=== PATIENT | male | born 1960 | race African-American/Black ===

== ENCOUNTER 2016-11-22 00:17 | Emergency (ER) | payer MEDICARE, MEDICAID ==
[2016-11-22 00:28] VITALS: BP 145/91
== END 2016-11-22 04:00 | disposition left against medical advice (07) ==
LOC: ER 00:17
DX: Z53.9 Procedure and treatment not carried out, unspecified reason (principal); R05 Cough

== ENCOUNTER 2017-06-10 11:59 | Emergency (ER) | payer MEDICARE, MEDICAID ==
[2017-06-10 12:05] VITALS: BP 149/87
--- NOTE | 2017-06-10 13:06 | ER Document Report ---
HPI - HPI Patient complains to provider of: swelling to left upper eyelid few days Onset: Other - few days Quality of pain: Pressure Pain Level: 4 Context: 57 yo non contact lense wearing (glasses he didn't bring with him) had itchy upper left eyelid margins/eyelashes on monday, then developed swelling and bump in area, minimal drainage. No visual disturbance. Associated Symptoms: None Exacerbated by: Denies Relieved by: Denies - ROS ROS below otherwise negative: Yes Systems Reviewed and Negative: Yes All other systems reviewed and negative - REPRODUCTIVE Reproductive: DENIES: : - DERM Skin Color: Normal Past Medical History - General Information source: Patient - Social History Smoking Status: Never Smoker Frequency of alcohol use: None Drug Abuse: None Lives with: Family Family History: Reviewed & Not Pertinent, Arthritis, CVA, Hyperlipidemia, Hypertension, Malignancy - Past Medical History Cardiac Medical History: Reports: Hx Atrial Fibrillation, Hx Hypercholesterolemia, Hx Hypertension Pulmonary Medical History: Reports: Hx Pneumonia Neurological Medical History: Reports: Hx Seizures Musculoskeltal Medical History: Reports Hx Arthritis, Reports Hx Musculoskeletal Deformity, Reports Hx Musculoskeletal Trauma Skin Medical History: Reports Hx MRSA Psychiatric Medical History: Reports: Hx Schizophrenia Infectious Medical History: Reports: Hx MRSA Past Surgical History: Reports: Hx Appendectomy, Hx Neurologic Surgery - Cervical fusion 08/31/2015, Hx Orthopedic Surgery - finger reattached, Hx Tonsillectomy - Immunizations Immunizations up to date: No Hx Diphtheria, Pertussis, Tetanus Vaccination: No Vertical Provider Document - CONSTITUTIONAL Agree With Documented VS: Yes Exam Limitations: No Limitations General Appearance: No Apparent Distress - INFECTION CONTROL TRAVEL OUTSIDE OF THE [place] IN LAST 30 DAYS: No - HEENT HEENT: Normocephalic, PERRLA Notes: left upper medial lid margin with sty, not draining. no eyeball erythema - NECK Neck: Supple. negative: Lymphadenopathy-Left, Lymphadenopathy-Right - RESPIRATORY Respiratory: Breath Sounds Normal, No Respiratory Distress O2 Sat by Pulse Oximetry: 98 - CARDIOVASCULAR Notes: a fib irregular pulse - NEURO Level of Consciousness: Awake, Alert Course - Re-evaluation Re-evalutation: 06/10/17 13:07 pivot pulse 39 in meditech, getting ekg. Documented incorectly, it was 93, nurse charted it, pt in AFib hx takes xarelto 06/10/17 14:01 wears glaases but did not bring, right 20/25 left 20/30 - Vital Signs Vital signs: Temp Pulse Resp BP Pulse Ox 98.4 F 39 L 20 149/87 H 98 06/10/17 12:03 06/10/17 12:03 06/10/17 12:03 06/10/17 12:03 06/10/17 12:03 Discharge - Discharge Clinical Impression: stye right upper eye lid Condition: Good Disposition: HOME, SELF-CARE Instructions: Eye Injury ([facility]), Sty ([facility]), Sulfa Medications ([facility]) Additional Instructions: wash eyelid margins with baby shampoo, daily wam compress to the sty antibiotic eye drops will help kill the bacteria to er if worse see eye doctor if persists Please complete the patient satisfaction survey if you get one, and return it.. If you do not receive a survey, then you can go to the [facility] website, [email or web address] and place your comments about your very good care. Thank you very much. It was a pleasure being your medical provider today. Prescriptions: Sulfacetamide Sodium [Bleph-10] 2 drop OU QID #5 ml Referrals: LORENZO MARCANO MD [ACTIVE STAFF] - Follow up as needed
== END 2017-06-10 14:23 | disposition home or self-care (01) ==
LOC: ER 11:59
DX: H00.011 Hordeolum externum right upper eyelid (principal); M79.89 Other specified soft tissue disorders; H57.12 Ocular pain, left eye; R22.0 Localized swelling, mass and lump, head
CPT/HCPCS: 99283

== ENCOUNTER → 2017-07-14 | Outpatient (CLI) | payer MEDICARE, MEDICAID ==
[2017-07-14 09:45] LABS: ABSOLUTE EOSINOPHILS # (AUTO) 0.1 10^3/uL (0.0-0.6); ABSOLUTE LYMPHOCYTES (AUTO) 1.9 10^3/uL (0.5-4.7); ABSOLUTE MONOCYTES (AUTO) 0.8 10^3/uL (0.1-1.4); ABSOLUTE NEUT (AUTO) 3.7 10^3/uL (1.7-8.2); BASOPHILS % (AUTO) 0.3 % (0-2); EOSINOPHILS % (AUTO) 1.8 % (0-6); HEMATOCRIT 45.6 % (37.9-51.0); HEMOGLOBIN 15.1 g/dL (13.5-17.0); HGB HCT DIFFERENCE -0.3; LYMPHOCYTES % (AUTO) 29.3 % (13-45); MEAN CORPUSCULAR HEMOGLOBIN 28.1 pg (27.0-33.4); MEAN CORPUSCULAR HGB CONC 33.1 g/dL (32.0-36.0); MEAN CORPUSCULAR VOLUME 85 fl (80-97); MONOCYTES % (AUTO) 12.5 % (3-13); RED BLOOD COUNT 5.37 10^6/uL (4.35-5.55); RED CELL DISTRIBUTION WIDTH 13.8 % (11.5-14.0); SEGMENTED NEUTROPHILS % (AUTO) 56.1 % (42-78); WHITE BLOOD COUNT 6.6 10^3/uL (4.0-10.5)
[2017-07-14 10:07] LABS: ALANINE AMINOTRANSFERASE 36 U/L (21-72); ALBUMIN 4.3 g/dL (3.5-5.0); ALKALINE PHOSPHATASE 84 U/L (38-126); ANION GAP 11 (5-19); ASPARTATE AMINO TRANSFERASE 33 U/L (17-59); BILIRUBIN,DIRECT 0.3 mg/dL (0.0-0.4); BILIRUBIN,TOTAL 0.8 mg/dL (0.2-1.3); BLOOD UREA NITROGEN 16 mg/dL (7-20); CALCIUM 9.6 mg/dL (8.4-10.2); CARBON DIOXIDE 32 mmol/L (22-30); CHLORIDE 101 mmol/L (98-107); CHOLESTEROL 167.12 mg/dL (0-200); CREATININE RESULT 1.07 mg/dL (0.52-1.25); Direct HDL 57 mg/dL (>40); GLUCOSE 100 mg/dL (75-110); POTASSIUM 4.6 mmol/L (3.6-5.0); SODIUM 143.8 mmol/L (137-145); TOTAL PROTEIN 7.4 g/dL (6.3-8.2); TRIGLYCERIDES 94 mg/dL (<150)
[2017-07-14 10:14] LABS: DIRECT LDL 93 mg/dL (<100)
== END ==
LOC: OD 09:04
PROVIDERS: ATTEND Internal Medicine
DX: I10 Essential (primary) hypertension (principal); I48.0 Paroxysmal atrial fibrillation; E78.5 Hyperlipidemia, unspecified; R35.1 Nocturia; R53.83 Other fatigue
CPT/HCPCS: 36415; 80053; 80061; 84153; 84443; 85025

== ENCOUNTER 2018-06-16 10:50 | Emergency (ER) | payer MEDICARE, MEDICAID ==
[2018-06-16] MEDS ORDERED: ASPIRIN 81 MG TABLET, CHEWABLE PO ONE ×2 (11:07→11:31)
--- NOTE | 2018-06-16 11:32 | ER Document Report ---
ED Cardiac - General Chief Complaint: Chest Pain Stated Complaint: CHEST PAIN/SHORTNESS OF BREATH Time Seen by Provider: 06/16/18 11:13 TRAVEL OUTSIDE OF THE [place] IN LAST 30 DAYS: No - HPI Patient complains to provider of: Chest pain Was the onset of pain: Gradual Chest pain location: Substernal Quality of pain: Intermittent, Achy Chest pain radiation location: None Severity now: Moderate Pain level currently: 0 Chest pain precipitating factors: laying down Cardiac risk factors: Hypertension, Dyslipidemia, Hx CHF Associated symptoms: Shortness of breath Exacerbated by: Lying flat Relieved by: Nothing Notes: Patient is a 58-year-old male that presents to the emergency department for chief complaint of chest pain. Patient has had substernal achy type chest pain for the last 2-3 days. It is intermittent. Nonradiating. Pain is worse with laying flat and relieved with nothing. He reports associated shortness of breath and feels that he is gasping for air. He does have a history of congestive heart failure. He denies any increased leg edema or abdominal protuberance. He denies palpitations. He has been compliant with Xarelto that he takes for atrial fibrillation. His last dose of Xarelto was this morning. He denies feeling any palpitations. Patient states he has had a negative stress test but it has been a few years. He denies history of cardiac catheterization or stenting. Past Medical History: CHF, A. fib, hypertension, hyperlipidemia Past Surgical History: Reviewed in chart Social History: Denies drugs alcohol and tobacco Family History: Reviewed and noncontributory for presenting illness Allergies: Reviewed, see documented allergy list. REVIEW OF SYSTEMS: CONSTITUTIONAL : No fever No chills No diaphoresis No recent illness EENT: No vision changes No congestion No sore throat CARDIOVASCULAR: chest pain No palpitations RESPIRATORY: shortness of breath No cough No difficulty breathing GASTROINTESTINAL: No abdominal pain No nausea No vomiting No diarrhea GENITOURINARY: No dysuria No hematuria No difficulty urinating MUSCULOSKELETAL: No back pain No leg pain No arm pain SKIN: No rashes No lesions LYMPHATIC: No swollen, enlarged glands. NEUROLOGICAL: No lightheadedness No headache No weakness No paresthesias PSYCHIATRIC: No anxiety No depression PHYSICAL EXAMINATION: Vital signs reviewed, nursing noted reviewed. GENERAL: Well-appearing, well-nourished and in no acute distress. Obese HEAD: Atraumatic, normocephalic. EYES: Eyes appear normal, extraocular movements intact, sclera anicteric, conjunctiva are normal. ENT: nares patent, oropharynx clear without exudates. Moist mucous membranes. NECK: Normal range of motion, supple without lymphadenopathy LUNGS: Breath sounds diminished to auscultation bilaterally and equal. No wheezes rales or rhonchi. HEART: Regular rate and rhythm without murmurs ABDOMEN: Soft, nontender, normoactive bowel sounds. No rebound, guarding, or rigidity. No masses appreciated. Protuberant abdomen EXTREMITIES: Nontender, good range of motion, trace pretibial edema bilaterally NEUROLOGICAL: No focal neurological deficits. Moves all extremities spontaneously Motor and sensory grossly intact on exam. PSYCH: Normal mood, normal affect. SKIN: Warm, Dry, normal turgor, no rashes or lesions noted on exposed skin - Related Data Allergies/Adverse Reactions: No Known Allergies Allergy (Verified 06/16/18 10:51) Past Medical History - Social History Smoking Status: Never Smoker Chew tobacco use (# tins/day): No Drug Abuse: None Family History: Reviewed & Not Pertinent, Arthritis, CVA, Hyperlipidemia, Hypertension, Malignancy Patient has suicidal ideation: No Patient has homicidal ideation: No - Past Medical History Cardiac Medical History: Reports: Hx Atrial Fibrillation, Hx Congestive Heart Failure, Hx Hypercholesterolemia, Hx Hypertension Denies: Hx Coronary Artery Disease, Hx DVT Pulmonary Medical History: Reports: Hx Pneumonia Neurological Medical History: Reports: Hx Seizures Endocrine Medical History: Denies: Hx Diabetes Mellitus Type 1, Hx Diabetes Mellitus Type 2 Renal/ Medical History: Denies: Hx Peritoneal Dialysis Musculoskeletal Medical History: Reports Hx Arthritis, Reports Hx Musculoskeletal Deformity, Reports Hx Musculoskeletal Trauma Skin Medical History: Reports Hx MRSA Psychiatric Medical History: Reports: Hx Schizophrenia Infectious Medical History: Reports: Hx MRSA Past Surgical History: Reports: Hx Appendectomy, Hx Neurologic Surgery - Cervical fusion 08/31/2015, Hx Orthopedic Surgery - finger reattached, Hx Tonsillectomy - Immunizations Immunizations up to date: No Hx Diphtheria, Pertussis, Tetanus Vaccination: No Review of Systems - Review of Systems Notes: Dictated Physical Exam - Vital signs Vitals: Temp Pulse Resp BP Pulse Ox 97.9 F 41 L 18 98/74 L 98 06/16/18 11:05 06/16/18 11:05 06/16/18 11:05 06/16/18 11:05 06/16/18 11:05 - Notes Notes: Dictated Course - Re-evaluation Re-evalutation: 06/16/18 11:30 Vitals reviewed. Nursing notes reviewed. EKG shows atrial fibrillation with no RVR or acute ischemic changes. Patient given aspirin for his chest pain. 06/16/18 12:20 Patient reevaluated and is currently asymptomatic. I discussed his results with him. Initial workup including troponin is unremarkable. Chest x-ray shows no pneumothorax or other acute cardiopulmonary process. Because of patient's multiple risk factors for heart disease I recommended admission to the hospital for further cardiac evaluation and telemetry monitoring. Patient does not wish to stay in the emergency room. He has capacity to understand his medical decisions. He understands the risks of leaving AGAINST MEDICAL ADVICE including loss of life, limb or permanent disability. Patient was told to return to the emergency room at any point in time for reevaluation and admission. He will continue taking medications as previously prescribed. He will follow with his primary care doctor as an outpatient as soon as he is available to do so. Patient discharged AMA. - Vital Signs Vital signs: Temp Pulse Resp BP Pulse Ox 97.9 F 41 L 18 98/74 L 100 06/16/18 11:05 06/16/18 11:05 06/16/18 11:05 06/16/18 11:05 06/16/18 11:07 - Laboratory Result Diagrams: 06/16/18 11:10 06/16/18 11:10 Laboratory results interpreted by me: 06/16/18 06/16/18 11:10 11:10 RBC 5.77 H RDW 14.5 H ALT 16 L Total Protein 8.5 H - EKG Interpretation by Me Additional EKG results interpreted by me: 06/16/18 11:30 Interpreted by myself 1056: Atrial fibrillation, rate 90, normal axis, no ectopy, no ST elevation Discharge - Discharge Clinical Impression: Chest pain Qualifiers: Chest pain type: unspecified Qualified Code(s): R07.9 - Chest pain, unspecified Condition: Stable Disposition: AGAINST MEDICAL ADVICE Additional Instructions: The patient has chosen to leave the facility against medical advice. The relevant issues have been reviewed and discussed with the patient and family at the bedside. At the time of this assessment there is no indication for involuntary commitment. The patient is alert, oriented, and able to express clearly their reasoning for not wanting to remain in the emergency department for further treatment. The patient is not clinically psychotic, intoxicated, and denies and suicidal ideation. Differential or suspected diagnoses based on medical screening exam: Chest pain , heart attack The patient is aware of the concerning diagnoses and acknowledges understanding of the reasons for the following recommendations: Admission to the hospital for cardiac evaluation and repeat blood work. The following recommendations/services were offered and refused: Admission to the hospital, cardiac evaluation, telemetry monitoring continued blood work The following risks were explained: , permanent disability, loss of function Clinical impression: Patient is competent to make decisions regarding the medical that is being offered. Referrals: KARINA ALONSO MD [Primary Care Provider] - Follow up tomorrow
[2018-06-16 11:38] LABS: ABSOLUTE EOSINOPHILS # (AUTO) 0.1 10^3/uL (0.0-0.6); ABSOLUTE LYMPHOCYTES (AUTO) 1.6 10^3/uL (0.5-4.7); MONOCYTES % (AUTO) 11.7 % (3-13); TOTAL CELLS COUNTED % (AUTO) 100 %
[2018-06-16 11:45] LABS: ABSOLUTE MONOCYTES (AUTO) 0.7 10^3/uL (0.1-1.4); BASOPHILS % (AUTO) 0.4 % (0-2); EOSINOPHILS % (AUTO) 1.2 % (0-6); HEMOGLOBIN 16.3 g/dL (13.5-17.0); LYMPHOCYTES % (AUTO) 24.6 % (13-45); MEAN CORPUSCULAR HEMOGLOBIN 28.3 pg (27.0-33.4); MEAN CORPUSCULAR HGB CONC 33.4 g/dL (32.0-36.0); MEAN CORPUSCULAR VOLUME 85 fl (80-97); PLATELET COUNT 265 10^3/uL (150-450); RED BLOOD COUNT 5.77 10^6/uL (4.35-5.55); RED CELL DISTRIBUTION WIDTH 14.5 % (11.5-14.0); SEGMENTED NEUTROPHILS % (AUTO) 62.1 % (42-78); WHITE BLOOD COUNT 6.4 10^3/uL (4.0-10.5)
[2018-06-16 11:55] LABS: ALANINE AMINOTRANSFERASE 16 U/L (21-72); ALBUMIN 4.7 g/dL (3.5-5.0); ALKALINE PHOSPHATASE 94 U/L (38-126); ANION GAP 12 (5-19); ASPARTATE AMINO TRANSFERASE 27 U/L (17-59); BILIRUBIN,DIRECT 0.2 mg/dL (0.0-0.4); BILIRUBIN,TOTAL 0.9 mg/dL (0.2-1.3); BLOOD UREA NITROGEN 20 mg/dL (7-20); CALCIUM 10.1 mg/dL (8.4-10.2); CARBON DIOXIDE 28 mmol/L (22-30); CHLORIDE 104 mmol/L (98-107); GLUCOSE 89 mg/dL (75-110); SODIUM 144.3 mmol/L (137-145); TOTAL PROTEIN 8.5 g/dL (6.3-8.2)
[2018-06-16 11:57] LABS: POTASSIUM 4.5 mmol/L (3.6-5.0)
--- NOTE | 2018-06-16 12:12 | RADIOLOGY REPORT (SQ) ---
EXAM DESCRIPTION: CHEST SINGLE VIEW COMPLETED DATE/TIME: 06/16/2018 12:00 pm REASON FOR STUDY: Chest pain COMPARISON: 07/24/2016 EXAM PARAMETERS: NUMBER OF VIEWS: One view. TECHNIQUE: Single frontal radiographic view of the chest acquired. RADIATION DOSE: NA LIMITATIONS: None. FINDINGS: LUNGS AND PLEURA: No opacities, masses or pneumothorax. No pleural effusion. MEDIASTINUM AND HILAR STRUCTURES: No masses. Contour normal. HEART AND VASCULAR STRUCTURES: Heart normal in size. Normal vasculature. BONES: No acute findings. HARDWARE: None in the chest. OTHER: No other significant finding. IMPRESSION: NO ACUTE RADIOGRAPHIC FINDING IN THE CHEST. TECHNICAL DOCUMENTATION: JOB ID: [id number] [employer]- All Rights Reserved Reading location - IP/workstation name: [email or web address]
[2018-06-16 12:44] VITALS: BP 106/82
--- NOTE | 2018-06-16 14:20 | EKG REPORT ---
SEVERITY:- ABNORMAL ECG - ATRIAL FIBRILLATION, V-RATE 71-103 : Confirmed by: Cem Galeana 16-Jun-2018 14:19:46
== END 2018-06-16 12:45 | disposition left against medical advice (07) ==
LOC: ER 10:50
DX: R07.89 Other chest pain (principal); R06.02 Shortness of breath; I10 Essential (primary) hypertension; I48.91 Unspecified atrial fibrillation; Z79.01 Long term (current) use of anticoagulants; Z53.20 Procedure and treatment not carried out because of patient's decision for unspecified reasons
CPT/HCPCS: 93005; 99285; 36415; 85025; 80053; 84484; 71045; 93010; A9270

== ENCOUNTER 2018-09-30 02:14 | Emergency (ER) | payer MEDICARE, MEDICAID ==
[2018-09-30] MEDS ORDERED: LIDOCAINE 5% (700 MG) TRANSDERMAL ADH..PATCH TP ONE (02:54)
[2018-09-30] MEDS ORDERED: ACETAMINOPHEN 325 MG TABLET PO ONE (02:54)
[2018-09-30] MEDS ORDERED: KETOROLAC TROMETHAMINE 60 MG/2 ML SDV IM ONE (02:54)
--- NOTE | 2018-09-30 03:26 | RADIOLOGY REPORT (SQ) ---
EXAM DESCRIPTION: XR HIP 2 OR MORE VIEWS COMPLETED DATE/TME: 09/30/2018 02:53 CLINICAL HISTORY: 58 years, Male, pain COMPARISON: None. NUMBER OF VIEWS: 2 TECHNIQUE: AP pelvis and single view left hip LIMITATIONS: None. FINDINGS: Negative for fracture or dislocation. Vascular calcifications. Mild degenerative change of the hips bilaterally. IMPRESSION: No acute osseous abnormality copyright 2010 [employer]- All Rights Reserved
--- NOTE | 2018-09-30 03:35 | ER Document Report ---
ED General - General Chief Complaint: Hip Pain Stated Complaint: HIP PAIN Time Seen by Provider: 09/30/18 02:30 Primary Care Provider: KARINA ALONSO MD [Primary Care Provider] - Follow up as needed Notes: Patient is a 58-year-old male with a past medical history of hypertension, hypercholesterolemia, presents complaining of 2-3 hours of left hip and left groin pain. States the pain came on relatively suddenly and has been relatively unchanged since onset. Describes it as a throbbing, spasming pain. States this is similar to when he has had muscle spasms in the past but they have never lasted this long. States that he is able to walk but that it is quite painful at the left hip. Denies any falls or trauma to the area. Has not seen his primary care physician regarding today's concerns. Did not try any medications to treat his symptoms. No history of DVT or PE. No new or different medications. No swelling or deformity to the area by the patient's report. No history of peripheral arterial disease. TRAVEL OUTSIDE OF THE [place] IN LAST 30 DAYS: No - Related Data Allergies/Adverse Reactions: No Known Allergies Allergy (Verified 06/16/18 10:51) Past Medical History - General Information source: Patient - Social History Smoking Status: Never Smoker Frequency of alcohol use: None Drug Abuse: None Family History: Reviewed & Not Pertinent, Arthritis, CVA, Hyperlipidemia, Hypertension, Malignancy - Past Medical History Cardiac Medical History: Reports: Hx Atrial Fibrillation, Hx Congestive Heart Failure, Hx Hypercholesterolemia, Hx Hypertension Denies: Hx Coronary Artery Disease, Hx DVT Pulmonary Medical History: Reports: Hx Pneumonia Neurological Medical History: Reports: Hx Seizures Endocrine Medical History: Denies: Hx Diabetes Mellitus Type 1, Hx Diabetes Mellitus Type 2 Renal/ Medical History: Denies: Hx Peritoneal Dialysis Musculoskeletal Medical History: Reports Hx Arthritis, Reports Hx Musculoskeletal Deformity, Reports Hx Musculoskeletal Trauma Skin Medical History: Reports Hx MRSA Psychiatric Medical History: Reports: Hx Schizophrenia Infectious Medical History: Reports: Hx MRSA Past Surgical History: Reports: Hx Appendectomy, Hx Neurologic Surgery - Cervical fusion 08/31/2015, Hx Orthopedic Surgery - finger reattached, Hx Tonsillectomy - Immunizations Immunizations up to date: No Hx Diphtheria, Pertussis, Tetanus Vaccination: No Review of Systems - Review of Systems Notes: Constitutional: Negative for fever. HENT: Negative for sore throat. Eyes: Negative for visual changes. Cardiovascular: Negative for chest pain. Respiratory: Negative for shortness of breath. Gastrointestinal: Negative for abdominal pain, vomiting or diarrhea. Genitourinary: Negative for dysuria. Musculoskeletal: Positive for left hip pain Skin: Negative for rash. Neurological: Negative for headaches, weakness or numbness. 10 point ROS negative except as marked above and in HPI. Physical Exam - Vital signs Vitals: Temp Pulse Resp BP Pulse Ox 97.5 F 100 18 129/77 H 97 09/30/18 02:22 09/30/18 02:22 09/30/18 02:22 09/30/18 02:22 09/30/18 02:22 Interpretation: Normal Notes: PHYSICAL EXAMINATION: GENERAL: Well-appearing, well-nourished and in no acute distress. HEAD: Atraumatic, normocephalic. EYES: Pupils equal round and reactive to light, extraocular movements intact, sclera anicteric, conjunctiva are normal. ENT: nares patent, oropharynx clear without exudates. Moist mucous membranes. NECK: Normal range of motion, supple without lymphadenopathy LUNGS: Breath sounds clear to auscultation bilaterally and equal. No wheezes rales or rhonchi. HEART: Regular rate and rhythm without murmurs 2+ left-sided femoral pulse. 2+ DP pulses bilaterally. ABDOMEN: Soft, nontender, normoactive bowel sounds. No guarding, no rebound. No masses appreciated. EXTREMITIES: Normal range of motion, no pitting or edema. No swelling or deformity of the left hip. No pain with axial loading or internal or external rotation of the hip. Patient does amply with a slightly antalgic gait on the left. No cyanosis. NEUROLOGICAL: No focal neurological deficits. Moves all extremities spontaneously and on command. PSYCH: Normal mood, normal affect. SKIN: Warm, Dry, normal turgor, no rashes or lesions noted. Course - Re-evaluation Re-evalutation: 09/30/18 03:32 Patient presents with left hip and groin pain that started approximately 2 hours prior to arrival. On exam the patient does not have any pain with axial loading, internal or external rotation of the left hip. No visible swelling or deformity of the area. Strong 2+ femoral pulse. 2+ DP pulse. Capillary refill less than 2 seconds in all digits of the toes. X-ray without any evidence of fracture, dislocation or gas. Vitals unremarkable. No indication for labs at this point. Very low clinical suspicion for any concerning pathology based on exam and history. No findings to suggest acute DVT. Wells score for DVT 0. At this time will discharge with return precautions and follow-up recommendations. Verbal discharge instructions given a the bedside and opportunity for questions given. Medication warnings reviewed. Patient is in agreement with this plan and has verbalized understanding of return precautions and the need for primary care follow-up in the next 24-72 hours. - Vital Signs Vital signs: Temp Pulse Resp BP Pulse Ox 97.5 F 100 18 129/77 H 97 09/30/18 02:22 09/30/18 02:22 09/30/18 02:22 09/30/18 02:22 09/30/18 02:22 Discharge - Discharge Clinical Impression: Left hip pain Condition: Good Additional Instructions: Your x-ray does not show any acute fracture today. You likely have a ligamentous strain. You should continue to take anti-inflammatories such as ibuprofen 600 mg every 6 hours. Continue to apply ice to the area is much your able. Please follow-up with your primary care physician if you do not have improving your symptoms in the next 1-2 weeks. Please return immediately if you develop weakness, numbness, spreading redness from the area, or any other symptoms that are concerning to you. Referrals: KARINA ALONSO MD [Primary Care Provider] - Follow up in 3-5 days
[2018-09-30 04:13] VITALS: BP 119/83
== END 2018-09-30 04:17 | disposition home or self-care (01) ==
LOC: ER 02:14
DX: M25.552 Pain in left hip (principal); R10.30 Lower abdominal pain, unspecified; I10 Essential (primary) hypertension
CPT/HCPCS: 99283; 96372; 73502; A9270; J1885

== ENCOUNTER 2019-01-19 22:23 | Emergency (ER) | payer MEDICARE, MEDICAID ==
[2019-01-19 22:33] VITALS: BP 131/87
--- NOTE | 2019-01-20 01:33 | RADIOLOGY REPORT (SQ) ---
EXAM DESCRIPTION: XR SPINE 1 VIEW COMPLETED DATE/TME: 01/20/2019 01:01 CLINICAL HISTORY: 58 years, Male, pain with rad down arm, hx of cervical fusion COMPARISON: CT 08/11/2015 NUMBER OF VIEWS: 5 TECHNIQUE: 5 views cervical spine LIMITATIONS: None. FINDINGS: Osteopenia. Anterior fixation plate and screws with partial bony fusion at C5/C6. Vertebral body height and alignment is preserved. Minor facet arthropathy and endplate degenerative change throughout the cervical spine. The lateral masses are not displaced. The prevertebral soft tissues are normal IMPRESSION: Osteopenia with postsurgical and degenerative change as above copyright 2010 [employer]- All Rights Reserved
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
== END 2019-01-20 01:40 | disposition home or self-care (01) ==
LOC: ER 22:23
DX: M54.2 Cervicalgia (principal); R20.2 Paresthesia of skin; Z98.1 Arthrodesis status; I48.91 Unspecified atrial fibrillation; I50.9 Heart failure, unspecified; I11.0 Hypertensive heart disease with heart failure; E78.00 Pure hypercholesterolemia, unspecified; Z86.14 Personal history of Methicillin resistant Staphylococcus aureus infection
CPT/HCPCS: 72040; 99283

== ENCOUNTER 2019-06-25 03:20 | Emergency (ER) | payer MEDICARE, MEDICAID ==
--- NOTE | 2019-06-25 06:09 | ER Document Report ---
HPI - HPI Time Seen by Provider: 06/25/19 05:46 Pain Level: 3 Context: Patient is a 59-year-old male who presents the emergency department with a chief complaint of a laceration to his her right proximal luo. Patient states that he was fixing a door and the glass had cut him on his luo. He is currently on Xarelto for atrial fibrillation. He denies any pain. He states that the bleeding was not controlled. At the time of my assessment, the patient's bleeding was controlled. Patient is not a diabetic. He is unsure as to when his last tetanus vaccine was. - ROS Systems Reviewed and Negative: Yes All other systems reviewed and negative - CONSTITUTIONAL Constitutional: DENIES: Chills - NEURO Neurology: DENIES: Dizzinesss / Vertigo - REPRODUCTIVE Reproductive: DENIES: : - MUSCULOSKELETAL Musculoskeletal: REPORTS: Extremity pain - right anterior proximal luo - DERM Skin Problems: Laceration - right anterior proximal luo Past Medical History - Social History Smoking Status: Never Smoker Family History: Reviewed & Not Pertinent, Arthritis, CVA, Hyperlipidemia, Hypertension, Malignancy Patient has suicidal ideation: No Patient has homicidal ideation: No - Past Medical History Cardiac Medical History: Reports: Hx Atrial Fibrillation, Hx Congestive Heart Failure, Hx Hypercholesterolemia, Hx Hypertension Denies: Hx Coronary Artery Disease, Hx DVT Pulmonary Medical History: Reports: Hx Pneumonia Neurological Medical History: Reports: Hx Seizures Endocrine Medical History: Denies: Hx Diabetes Mellitus Type 1, Hx Diabetes Mellitus Type 2 Renal/ Medical History: Denies: Hx Peritoneal Dialysis Musculoskeletal Medical History: Reports Hx Arthritis, Reports Hx Musculoskeletal Deformity, Reports Hx Musculoskeletal Trauma Skin Medical History: Reports Hx MRSA Psychiatric Medical History: Reports: Hx Schizophrenia Infectious Medical History: Reports: Hx MRSA Past Surgical History: Reports: Hx Appendectomy, Hx Neurologic Surgery - Cervical fusion 08/31/2015, Hx Orthopedic Surgery - finger reattached, Hx Tonsillectomy - Immunizations Immunizations up to date: No Hx Diphtheria, Pertussis, Tetanus Vaccination: No Vertical Provider Document - CONSTITUTIONAL Agree With Documented VS: Yes Exam Limitations: No Limitations General Appearance: No Apparent Distress - INFECTION CONTROL TRAVEL OUTSIDE OF THE [place] IN LAST 30 DAYS: No - HEENT HEENT: Atraumatic, Normocephalic, PERRLA - NECK Neck: Normal Inspection - RESPIRATORY Respiratory: No Respiratory Distress - CARDIOVASCULAR Cardiovascular: Regular Rhythm Pulses: Normal: Posterior tibial, Dorsalis pedis - MUSCULOSKELETAL/EXTREMETIES Musculoskeletal/Extremeties: FROM, Tender - right anterior proximal luo. negative: Eccymosis - NEURO Level of Consciousness: Awake, Alert, Appropriate Motor/Sensory: No Motor Deficit, No Sensory Deficit - DERM Integumentary: Warm, Dry, Laceration - right anterior proximal luo; clotted off Course - Re-evaluation Re-evalutation: 06/24/19 Laceration was assessed and there was no bleeding noted. I suspect the pressure dressing was that was placed to the area had clotted the wound off. The patient's x-ray did not show a foreign body. Patient asked what his labs were, but I stated that with no dizziness or loss of consciousness, I do not suspect that he is anemic at this time. Mucous membranes are pink. Patient was sent home with extra Coban and 4 x 4's. I instructed him to keep the area clean and dry. He received his tetanus vaccine. Patient will follow up with his primary care provider. Follow-up precautions were given. Verbal discharge instructions were given to the patient. They verbalized understanding. They are stable for discharge. - Vital Signs Vital signs: Temp Pulse Resp BP Pulse Ox 97.9 F 69 17 119/84 100 06/25/19 03:31 06/25/19 03:31 06/25/19 03:31 06/25/19 03:31 06/25/19 03:31 Discharge - Discharge Clinical Impression: Leg laceration Qualifiers: Encounter type: initial encounter Laterality: right Qualified Code(s): S81.811A - Laceration without foreign body, right lower leg, initial encounter Condition: Stable Disposition: HOME, SELF-CARE Additional Instructions: You are seen today in the emergency department for a cut to your right luo. The bleeding was controlled with direct pressure. The x-ray did not show any glass in your luo. Please follow-up with your primary care provider as needed. If the site bleeds again, please continue to apply pressure. When you take off the dressing, please make the dressing moist, then take it off. Referrals: JOSE MILNER, [Primary Care Provider] - Follow up as needed
--- NOTE | 2019-06-25 07:40 | RADIOLOGY REPORT (SQ) ---
EXAM DESCRIPTION: XR TIBIA FIBULA 2 VIEWS COMPLETED DATE/TME: 06/25/2019 05:58 CLINICAL HISTORY: 59 years Male, right luo laceration; eval foreign body COMPARISON: None. Limitation: Right ankle level not fully imaged. Findings: Known soft tissue injury without radiographic evidence of radiopaque foreign body or bone-joint involvement. Bones, joints, and soft tissues of the RIGHT proximal and mid XR TIBIA FIBULA 2 VIEWS appear otherwise unremarkable. IMPRESSION: No acute findings. Limitation.
[2019-06-25] MEDS ORDERED: DIPH/PERTUSS(ACELL)/TETANUS VAC/PF 0.5 ML SYR (>=10YO) IM ONE (07:46)
[2019-06-25 08:35] VITALS: BP 127/80
== END 2019-06-25 08:33 | disposition home or self-care (01) ==
LOC: ER 03:20
DX: S81.811A Laceration without foreign body, right lower leg, initial encounter (principal); M79.604 Pain in right leg; W25.XXXA Contact with sharp glass, initial encounter; I48.91 Unspecified atrial fibrillation; Z79.01 Long term (current) use of anticoagulants; I50.9 Heart failure, unspecified; I11.0 Hypertensive heart disease with heart failure
CPT/HCPCS: 90471; 90715; 99283

== ENCOUNTER 2019-12-04 01:22 | Emergency (ER) | payer MEDICARE, MEDICAID ==
[2019-12-04] MEDS ORDERED: IPRATROPIUM/ALBUTEROL 0.5-2.5 MG/3 ML AMPUL NEB ONE (01:35)
--- NOTE | 2019-12-04 01:38 | ER Document Report ---
ED Respiratory Problem - General Chief Complaint: Breathing Difficulty Stated Complaint: DIFFICULTY BREATHING Time Seen by Provider: 12/04/19 01:24 Primary Care Provider: JOSE MILNER DO [Primary Care Provider] - Follow up in 3-5 days Notes: Patient is a 59-year-old male that comes emergency department for chief com plaint of shortness of breath, sensation like at times that he cannot catch his breath, and some tightness in his chest. He denies specific chest pain. He states this is been intermittently going on for the past 2 days. He reports occasional cough but denies anything significantly out of the ordinary. Patient denies fever/chills, nausea/vomiting, injury, headache, sore throat. He denies history of COPD and asthma but he states that he is constantly exposed to secondhand smoke. Patient has a history of atrial fibrillation, states he is compliant with his Xarelto and rate control, also reports a history of seizures, anxiety/depression. Denies medical history otherwise. TRAVEL OUTSIDE OF THE [place] IN LAST 30 DAYS: No - Related Data Allergies/Adverse Reactions: No Known Allergies Allergy (Verified 06/16/18 10:51) Past Medical History - General Information source: Patient - Social History Smoking Status: Never Smoker - Secondhand smoke, does not smoke on his own Frequency of alcohol use: None Drug Abuse: None Lives with: Family Family History: Reviewed & Not Pertinent, Arthritis, CVA, Hyperlipidemia, Hyp ertension, Malignancy - Past Medical History Cardiac Medical History: Reports: Hx Atrial Fibrillation, Hx Congestive Heart Failure, Hx Hypercholesterolemia, Hx Hypertension Denies: Hx Coronary Artery Disease, Hx DVT Pulmonary Medical History: Reports: Hx Pneumonia Neurological Medical History: Reports: Hx Seizures Endocrine Medical History: Denies: Hx Diabetes Mellitus Type 1, Hx Diabetes Mellitus Type 2 Renal/ Medical History: Denies: Hx Peritoneal Dialysis Musculoskeletal Medical History: Reports Hx Arthritis, Reports Hx Musc uloskeletal Deformity, Reports Hx Musculoskeletal Trauma Skin Medical History: Reports Hx MRSA Psychiatric Medical History: Reports: Hx Schizophrenia Infectious Medical History: Reports: Hx MRSA Past Surgical History: Reports: Hx Appendectomy, Hx Neurologic Surgery - Cervical fusion 08/31/2015, Hx Orthopedic Surgery - finger reattached, Hx Tonsillectomy - Immunizations Immunizations up to date: No Hx Diphtheria, Pertussis, Tetanus Vaccination: No Review of Systems - Review of Systems Constitutional: See HPI EENT: No symptoms reported Cardiovascular: See HPI Respiratory: See HPI Gastrointestinal: No symptoms reported Genitourinary: No symptoms reported Male Genitourinary: No symptoms reported Musculoskeletal: No symptoms reported Skin: No symptoms reported Hematologic/Lymphatic: No symptoms reported Neurological/Psychological: No symptoms reported Physical Exam - Vital signs Vitals: Temp 98.4 F 12/04/19 01:39 - Notes Notes: GENERAL: Alert, interacts well. No acute distress. HEAD: Normocephalic, atraumatic. EYES: Pupils equal, round, and reactive to light. Extraocular movements intact. ENT: Oral mucosa moist, tongue midline. Oropharynx unremarkable. Airway patent. Nares patent, sinuses non-tender NECK: Full range of motion. Supple. Trachea midline. No lymphadenopathy. LUNGS: Expiratory wheezes heard in all lung mejia. No rales or rhonchi. No tachypnea or labored breathing. Speaks in full sentences. No signs of distress. HEART: Irregularly irregular but normal rate, no murmur ABDOMEN: Soft, non-tender. Non-distended. EXTREMITIES: Moves all 4 extremities spontaneously. No edema, normal radial and dorsalis pedis pulses bilaterally. No cyanosis. BACK: no cervical, thoracic, lumbar midline tenderness. No saddle anesthesia, normal distal neurovascular exam. Moves all extremities in full range of motion. NEUROLOGICAL: Alert and oriented x3. Normal speech. Cranial nerves II through XII grossly intact. Strength 5/5 in all extremities. PSYCH: Normal affect, normal mood. SKIN: Warm, dry, normal turgor. No rashes or lesions noted. Course - Re-evaluation Re-evalutation: Patient does have expiratory wheezes on exam. He has no other symptoms including sore throat, fever, body aches, cough, chest pain, nausea vomiting, abdominal pain. Patient is also had no travel and no reported contacts. I did discuss this but because of his lack of symptoms or concerning exposures decision was made not to perform coronavirus testing. CBC unremarkable, chemistry unremarkable, BNP is borderline elevated but significantly reduced compared to previous levels. Chest x-ray unremarkable. EKG showing atrial fibrillation without RVR and has no noted ischemia. Troponin is negative despite symptoms intermittently for the past couple of days. 12/04/19 03:55 On reevaluation after DuoNeb patient's wheezing is completely resolved. He has no current complaints. Patient does not have a history of asthma or COPD but he states he is constantly around secondhand smoke, especially recently. Patient was provided with a spacer, albuterol inhaler, and patient states he already has close follow-up scheduled with his primary care for recheck. I discussed details of his work-up, answered questions, discussed follow-up and return precautions in detail. Patient states appreciation and agreement. Stable, well-appearing, asymptomatic at time of discharge. - Vital Signs Vital signs: Temp Pulse Resp BP Pulse Ox 98.0 F 83 16 133/91 H 100 12/04/19 04:21 12/04/19 04:21 12/04/19 04:21 12/04/19 04:21 12/04/19 04:21 - Laboratory Result Diagrams: 12/04/19 01:35 12/04/19 01:35 Laboratory results interpreted by me: 12/04/19 12/04/19 12/04/19 01:35 01:35 01:35 RDW 14.7 H Glucose 112 H NT-Pro-B Natriuret Pep 177 H Discharge - Discharge Clinical Impression: Wheezing, Shortness of breath Condition: Stable Disposition: HOME, SELF-CARE Additional Instructions: Your work-up does not show any concerning findings. Your evaluation did show wheezing, this appears to be inflammation of your upper respiratory tract. I recommend that you use the inhaler with a spacer, consider [id number] antiallergy medication, avoid smoking and secondhand smoke. Follow-up closely with primary care for additional evaluation and management. Return if you worsen including developing cough, fever, difficulty breathing, chest pain, or any other concerning or worsening symptoms. Prescriptions: Albuterol Sulfate [Proair HFA Inhalation Aerosol 8.5 gm MDI] 2 puff IH Q4H PRN #1 mdi PRN Reason: Forms: Return to Work Referrals: JOSE MILNER DO [Primary Care Provider] - Follow up in 3-5 days
[2019-12-04 01:55] LABS: ABSOLUTE EOSINOPHILS # (AUTO) 0.1 10^3/uL (0.0-0.6); ABSOLUTE LYMPHOCYTES (AUTO) 2.4 10^3/uL (0.5-4.7); ABSOLUTE MONOCYTES (AUTO) 0.9 10^3/uL (0.1-1.4); BASOPHILS % (AUTO) 0.3 % (0-2); EOSINOPHILS % (AUTO) 1.8 % (0-6); HEMATOCRIT 44.7 % (37.9-51.0); HEMOGLOBIN 15.2 g/dL (13.5-17.0); LYMPHOCYTES % (AUTO) 31.8 % (13-45); MEAN CORPUSCULAR HEMOGLOBIN 28.8 pg (27.0-33.4); MEAN CORPUSCULAR HGB CONC 34.1 g/dL (32.0-36.0); MEAN CORPUSCULAR VOLUME 84 fl (80-97); MONOCYTES % (AUTO) 11.5 % (3-13); PLATELET COUNT 260 10^3/uL (150-450); RED BLOOD COUNT 5.29 10^6/uL (4.35-5.55); RED CELL DISTRIBUTION WIDTH 14.7 % (11.5-14.0); SEGMENTED NEUTROPHILS % (AUTO) 54.6 % (42-78); TOTAL CELLS COUNTED % (AUTO) 100 %; WHITE BLOOD COUNT 7.4 10^3/uL (4.0-10.5)
[2019-12-04 02:13] LABS: ALBUMIN 4.2 g/dL (3.5-5.0); ALKALINE PHOSPHATASE 93 U/L (38-126); ANION GAP 10 (5-19); ASPARTATE AMINO TRANSFERASE 31 U/L (17-59); BILIRUBIN,TOTAL 0.4 mg/dL (0.2-1.3); BLOOD UREA NITROGEN 19 mg/dL (7-20); CALCIUM 9.3 mg/dL (8.4-10.2); CARBON DIOXIDE 24 mmol/L (22-30); CHLORIDE 106 mmol/L (98-107); GLUCOSE 112 mg/dL (75-110); POTASSIUM 3.8 mmol/L (3.6-5.0); TOTAL PROTEIN 7.7 g/dL (6.3-8.2)
[2019-12-04 02:33] LABS: NT PRO BNP 177 pg/mL (<125)
[2019-12-04 02:34] LABS: TROPONIN I < 0.012 ng/mL
--- NOTE | 2019-12-04 03:26 | RADIOLOGY REPORT (SQ) ---
AP Portable chest: 12/04/2019 2:24 AM CDT History: 59-year old patient with dyspnea. Comparison: Chest radiograph performed 06/16/2018. Findings: The cardiomediastinal silhouette is enlarged. No pneumothorax is seen. No discrete pleural effusion is apparent. No acute airspace opacities are seen. The lung volumes are very low. There is mild elevation of the right hemidiaphragm. Impression: No acute airspace opacities are seen. The cardiomediastinal silhouette is enlarged.
[2019-12-04] MEDS ORDERED: ALBUTEROL SULFATE HFA (90 MCG/PUFF) 8 GM MDI (1 MDI/ER DISP) IH ONE (03:55)
[2019-12-04 04:24] VITALS: BP 133/91
--- NOTE | 2019-12-04 07:42 | EKG REPORT ---
SEVERITY:- ABNORMAL ECG - ATRIAL FIBRILLATION, V-RATE 77-101 : Confirmed by: Anthony Myers MD 04-Dec-2019 07:41:44
== END 2019-12-04 04:25 | disposition home or self-care (01) ==
LOC: ER 01:22
DX: R06.02 Shortness of breath (principal); R06.2 Wheezing; I48.91 Unspecified atrial fibrillation; Z79.01 Long term (current) use of anticoagulants; I50.9 Heart failure, unspecified; I11.0 Hypertensive heart disease with heart failure
CPT/HCPCS: 93005; 94640; 99285; 36415; 85025; 80053; 84484; 83880; 71045; 93010; A9270; J7620

== ENCOUNTER → 2020-04-28 | Outpatient (CLI) | payer MEDICARE, MEDICAID ==
--- NOTE | 2020-04-28 12:50 | RADIOLOGY REPORT (SQ) ---
EXAM DESCRIPTION: CT CHEST WITHOUT IMAGES COMPLETED DATE/TIME: 04/28/2020 10:09 am REASON FOR STUDY: J98.4 OTHER DISORDERS OF LUNG J98.4 OTHER DISORDERS OF LUNG COMPARISON: 07/03/2016 TECHNIQUE: CT scan performed of the chest without intravenous contrast. Images reviewed with lung, soft tissue and bone windows. Reconstructed coronal and sagittal MPR images reviewed. All images st ored on PACS. All CT scanners at this facility use dose modulation, iterative reconstruction, and/or weight based d osing when appropriate to reduce radiation dose to as low as reasonably achievable (ALARA). [facility]: Dose Right [facility]: CareDose [facility]: Dose Right [facility]: Teradose 4D [facility]: Smart Auto Mute RADIATION DOSE: CT Rad equipment meets quality standard of care and radiation dose reduction techniq ues were employed. CTDIvol: 14.0 mGy. DLP: 560 mGy-cm. mGy. LIMITATIONS: No technical limitations. FINDINGS: LUNGS AND PLEURA: No masses, infiltrates, or pneumothorax. No pleural effusions or pleura l calcifications. HILAR AND MEDIASTINAL STRUCTURES: No identified masses or abnormal nodes. No obvious aneurysm. HEART AND VASCULAR STRUCTURES: No aneurysm. No pericardial effusion. UPPER ABDOMEN: There is a 19.5 x 15.5 mm right adrenal nodule. This is slightly hyperdense, measurin g 34 Hounsfield units. This is slightly larger than on the prior study where it measured 13.2 x 17.6 mm. THYROID AND OTHER SOFT TISSUES: No masses. No adenopathy. BONES: No significant finding. HARDWARE: None in the chest. OTHER: No other significant findings. IMPRESSION: 1. No significant findings in the thorax. 2. Right adrenal nodule as described. Recommend 1 year follow-up adrenal washout CT. TECHNICAL DOCUMENTATION: JOB ID: [id number] Quality ID # [id number]: Final reports with documentation of one or more dose reduction techniques (e.g., Au tomated exposure control, adjustment of the mA and/or kV according to patient size, use of iterative reconstruction technique) 2010 [employer]- All Rights Reserved Reading location - IP/workstation name: [email or web address]
== END ==
LOC: RAD 09:51
PROVIDERS: ATTEND Internal Medicine Critical Care Medicine
DX: J98.4 Other disorders of lung (principal); R05 Cough
CPT/HCPCS: 71250

== ENCOUNTER → 2020-07-29 | Outpatient (CLI) | payer MEDICARE, MEDICAID ==
[2020-07-29 17:57] LABS: ABSOLUTE EOSINOPHILS # (AUTO) 0.1 10^3/uL (0.0-0.6); ABSOLUTE LYMPHOCYTES (AUTO) 2.1 10^3/uL (0.5-4.7); ABSOLUTE MONOCYTES (AUTO) 0.9 10^3/uL (0.1-1.4); ABSOLUTE NEUT (AUTO) 2.1 10^3/uL (1.7-8.2); BASOPHILS % (AUTO) 0.4 % (0-2); EOSINOPHILS % (AUTO) 2.6 % (0-6); HEMATOCRIT 48.7 % (37.9-51.0); HEMOGLOBIN 15.8 g/dL (13.5-17.0); LYMPHOCYTES % (AUTO) 39.7 % (13-45); MEAN CORPUSCULAR HEMOGLOBIN 27.9 pg (27.0-33.4); MEAN CORPUSCULAR HGB CONC 32.4 g/dL (32.0-36.0); MEAN CORPUSCULAR VOLUME 86 fl (80-97); MONOCYTES % (AUTO) 17.3 % (3-13); PLATELET COUNT 235 10^3/uL (150-450); RED BLOOD COUNT 5.65 10^6/uL (4.35-5.55); RED CELL DISTRIBUTION WIDTH 14.8 % (11.5-14.0); TOTAL CELLS COUNTED % (AUTO) 100 %; WHITE BLOOD COUNT 5.3 10^3/uL (4.0-10.5)
[2020-07-29 18:24] LABS: ALBUMIN 4.5 g/dL (3.5-5.0); ALKALINE PHOSPHATASE 94 U/L (38-126); AMYLASE 87 U/L (30-110); ANION GAP 8 (5-19); ASPARTATE AMINO TRANSFERASE 35 U/L (17-59); BILIRUBIN,DIRECT 0.1 mg/dL (0.0-0.4); BILIRUBIN,TOTAL 0.7 mg/dL (0.2-1.3); BLOOD UREA NITROGEN 20 mg/dL (7-20); C-REACTIVE PROTEIN 7.9 mg/L (<10.0); CALCIUM 9.4 mg/dL (8.4-10.2); CARBON DIOXIDE 31 mmol/L (22-30); CHLORIDE 102 mmol/L (98-107); GLUCOSE 91 mg/dL (75-110); POTASSIUM 4.7 mmol/L (3.6-5.0); TOTAL PROTEIN 7.9 g/dL (6.3-8.2)
[2020-07-29 18:34] LABS: ERYTHROCYTE SEDIMENTATION RATE 13 mm/hr (0-20)
== END ==
LOC: OD 16:42
PROVIDERS: ATTEND Family Medicine
DX: M47.22 Other spondylosis with radiculopathy, cervical region (principal); R10.10 Upper abdominal pain, unspecified; I10 Essential (primary) hypertension; I48.91 Unspecified atrial fibrillation
CPT/HCPCS: 36415; 80053; 82150; 83690; 85025; 85652; 86140

== ENCOUNTER 2020-09-10 20:26 | Emergency (ER) | payer MEDICARE, MEDICAID ==
--- NOTE | 2020-09-10 21:34 | ER Document Report ---
ED Medical Screen (RME) - General Chief Complaint: Rectal Bleeding Stated Complaint: RECTAL BLEEDING Primary Care Provider: JOSE MILNER DO [Primary Care Provider] - Follow up as needed TRAVEL OUTSIDE OF THE [place] IN LAST 30 DAYS: No - HPI Notes: 09/10/20 21:31 Rapid Medical Exam HPI: 60-year-old male presents to the ER complaining of rectal bleeding today. Patient says he had a colonoscopy the other day and was not told to stop his Xarelto. Patient has dark red "jellylike" stools. He has chronic unchanged shortness of breath and a little chest tightness. No syncope or near syncope. Tried to call his doctor who told him to go to the emergency room. Physical Exam: GENERAL: Well-appearing, well-nourished and in no acute distress. HEAD: Atraumatic, normocephalic. ENT: Moist mucous membranes. RESP: Respirations even and unlabored CV- Regular rate. NEURO: No focal neurological deficits. Moves all extremities spontaneously and on command. My involvement in this patients care was limited to a rapid initial assessment. A comprehensive ED assessment and evaluation of the patient, analysis of test results, treatment, and completion of the medical decision making process will be performed by other ER providers. - Related Data Allergies/Adverse Reactions: No Known Allergies Allergy (Verified 09/10/20 21:17) Home Medications: XERRELTO. "HEART MEDICATIONS". PAIN MEDS. Past Medical History - Social History Frequency of alcohol use: None Drug Abuse: None - Past Medical History Cardiac Medical History: Reports: Hx Atrial Fibrillation, Hx Congestive Heart Failure, Hx Hypercholesterolemia, Hx Hypertension Denies: Hx Coronary Artery Disease, Hx DVT Pulmonary Medical History: Reports: Hx Pneumonia Neurological Medical History: Reports: Hx Seizures Endocrine Medical History: Denies: Hx Diabetes Mellitus Type 1, Hx Diabetes Mellitus Type 2 Renal/ Medical History: Denies: Hx Peritoneal Dialysis Musculoskeltal Medical History: Reports Hx Arthritis, Reports Hx Musculoskeletal Deformity, Reports Hx Musculoskeletal Trauma Skin Medical History: Reports Hx MRSA Psychiatric Medical History: Reports: Hx Schizophrenia Infectious Medical History: Reports: Hx MRSA Past Surgical History: Reports: Hx Appendectomy, Hx Neurologic Surgery - Cervical fusion 08/31/2015, Hx Orthopedic Surgery - finger reattached, Hx Tonsillectomy - Immunizations Immunizations up to date: No Hx Diphtheria, Pertussis, Tetanus Vaccination: No Physical Exam - Vital signs Vitals: Temp Pulse Resp BP Pulse Ox 98.3 F 56 L 20 115/76 100 09/10/20 20:35 09/10/20 20:35 09/10/20 20:35 09/10/20 20:35 09/10/20 20:35 Course - Vital Signs Vital signs: Temp Pulse Resp BP Pulse Ox 98.3 F 56 L 20 115/76 100 09/10/20 20:35 09/10/20 20:35 09/10/20 20:35 09/10/20 20:35 09/10/20 20:35 Doctor's Discharge - Discharge Referrals: JOSE MILNER DO [Primary Care Provider] - Follow up as needed
--- NOTE | 2020-09-10 22:17 | ER Document Report ---
Entered by KENY HENRY SCRIBE 09/10/20 2217 Acting as scribe for:KWABENA FERNANDEZ DO ED General <MIL MCCRAY - Last Filed: 09/11/20 02:56> - General Information source: Patient TRAVEL OUTSIDE OF THE [place] IN LAST 30 DAYS: No - Related Data Home Medications: XERRELTO. "HEART MEDICATIONS". PAIN MEDS. <KWABENA FERNANDEZ - Last Filed: 09/14/20 17:15> - General Chief Complaint: Rectal Bleeding Stated Complaint: RECTAL BLEEDING Time Seen by Provider: 09/10/20 22:01 Primary Care Provider: ANT FUENTES MD [ACTIVE STAFF] - 09/11/20 PARVEZ RUSSO MD [ACTIVE PROVISIONAL STAFF] - 09/11/20 JOSE MILNER DO [Primary Care Provider] - Follow up in 1 week Notes: This 60 year old male patient with history of Afib, HLD, and HTN, presents to [facility] emergency department today with complaints of dark red stool. Patient states he had a colonoscopy yesterday and is on Xarelto. Patient states his colonoscopy was done because of his constant diarrhea and "shortness of breath". Patient reports lower abdominal pain when he coughs. Patient showed a picture of his stool on concrete on his phone and states he used the bathroom outside. Denies history of DM. (KWABENA FERNANDEZ) - Related Data Allergies/Adverse Reactions: No Known Allergies Allergy (Verified 09/10/20 21:17) Past Medical History - General Information source: Patient, [facility] Records - Social History Smoking Status: Never Smoker Frequency of alcohol use: None Drug Abuse: None Lives with: Friend Family History: Reviewed & Not Pertinent, Arthritis, CVA, Hyperlipidemia, Hypertension, Malignancy - Past Medical History Cardiac Medical History: Reports: Hx Atrial Fibrillation, Hx Congestive Heart Failure, Hx Hypercholesterolemia, Hx Hypertension Pulmonary Medical History: Reports: Hx Pneumonia Neurological Medical History: Reports: Hx Seizures Endocrine Medical History: Denies: Hx Diabetes Mellitus Type 1, Hx Diabetes Mellitus Type 2 Musculoskeletal Medical History: Reports Hx Arthritis, Reports Hx Musculoskeletal Deformity, Reports Hx Musculoskeletal Trauma Skin Medical History: Reports Hx MRSA Psychiatric Medical History: Reports: Hx Schizophrenia Infectious Medical History: Reports: Hx MRSA Past Surgical History: Reports: Hx Appendectomy, Hx Neurologic Surgery - Cervical fusion 08/31/2015, Hx Orthopedic Surgery - finger reattached, Hx Tonsillectomy - Immunizations Immunizations up to date: No Hx Diphtheria, Pertussis, Tetanus Vaccination: No <KWABENA FERNANDEZ P - Last Filed: 09/14/20 17:15> Review of Systems - Review of Systems Constitutional: No symptoms reported EENT: No symptoms reported Cardiovascular: No symptoms reported Respiratory: No symptoms reported Gastrointestinal: See HPI, Abdominal pain - when coughing, Diarrhea - dark red stool Genitourinary: No symptoms reported Male Genitourinary: No symptoms reported Musculoskeletal: No symptoms reported Skin: No symptoms reported Hematologic/Lymphatic: No symptoms reported Neurological/Psychological: No symptoms reported -: Yes All other systems reviewed and negative <KWABENA FERNANDEZ P - Last Filed: 09/14/20 17:15> Physical Exam - General General appearance: Alert, Anxious - HEENT Head: Normocephalic, Atraumatic Eyes: Normal Pupils: PERRL - Respiratory Respiratory status: No respiratory distress Chest status: Nontender Breath sounds: Normal Chest palpation: Normal - Cardiovascular Rhythm: Regular Heart sounds: Normal auscultation Murmur: No - Abdominal Inspection: Obese Distension: No distension Bowel sounds: Normal - Extremities General upper extremity: Normal inspection, Normal ROM General lower extremity: Normal inspection, Normal ROM. No: Edema - Neurological Neuro grossly intact: Yes Cognition: Normal Orientation: AAOx4 [place] Coma Scale Eye Opening: Spontaneous [place] Coma Scale Verbal: Oriented [place] Coma Scale Motor: Obeys Commands Ruthann Coma Scale Total: 15 Speech: Normal Sensory: Normal - Psychological Associated symptoms: Normal affect, Anxious - Skin Skin Temperature: Warm Skin Moisture: Dry Skin Color: Normal <KWABENA FERNANDEZ P - Last Filed: 09/14/20 17:15> - Vital signs Vitals: Temp Pulse Resp BP Pulse Ox 98.3 F 56 L 20 115/76 100 09/10/20 20:35 09/10/20 20:35 09/10/20 20:35 09/10/20 20:35 09/10/20 20:35 - Abdominal Notes: Mild diffuse tenderness with palpation. (KWABENA FERNANDEZ) Course - Laboratory Results Result Diagrams: 09/11/20 02:19 09/10/20 22:20 Critical Laboratory Results Reviewed: No Critical Results - Radiology Results Critical Radiology Results Reviewed: No Critical Results <MIL MCCRAY - Last Filed: 09/11/20 02:56> - Laboratory Results Result Diagrams: 09/11/20 02:19 09/10/20 22:20 Critical Laboratory Results Reviewed: No Critical Results - Radiology Results Critical Radiology Results Reviewed: No Critical Results <KWABENA FERNANDEZ - Last Filed: 09/14/20 17:15> - Re-evaluation Re-evalutation: 09/11/20 02:53 Patient turned over to me pending reevaluation and repeat hemoglobin after presenting with lower GI bleeding after having colonoscopy and biopsy on Xarelto. Patient has been here now for 6-1/2 hours and has only had 1 episode of low volume maroon bloody stool. I evaluated patient. Patient appears well, abdominal exam is benign, vital signs remain normal, and patient strongly desires discharge and is in agreement with follow-up plan. Patient says that he had a large bloody stool right before he came to the ED, his lab work was drawn shortly after arrival and his repeat hemoglobin is one-point decreased but this is also a real equilibration from having blood loss immediately just prior to arrival. Patient before coming to the ED had 4 bloody stools that were all about 3 hours apart and then he went greater than 5 hours before having one here so the frequency is decreased. Xarelto is now stopped and frequency and volume of bleeding is decreased so there is good reason to feel that symptoms are improving and inciting factor has been corrected. Therefore I will discharge patient to follow-up with his production support analyst today during business hours. I instructed patient to hold Xarelto over the weekend as per Dr. Fernandez's conversation with Dr. Russo and started him back on Monday. Gave patient strict instructions to return to ED immediately if he starts having more freque nt or higher volume stools or he feels in any way worse. Patient denied any shortness of breath or chest pain to me, trop was repeated and remained negative. Patient ready for discharge with close outpatient follow-up. (MIL MCCRAY) 09/10/20 23:21 MDM Pleasant 60 year old male arrives with compalints of blood in stool after Colonscopy with biopsies done 09/09. Mild diffuse abd pain is not new for him. Hemodynamics here are unremarkable and INR 1.38. Takes Xarelto do to A fib. I have telephoned Dr. Fuentes and there is no answer. We have no GI coverage at the hospital [place]. I have reached out to [facility] to speak with their GI doctor regarding this gentleman. I am awaiting a call back. [facility] GI fellow called back and we discussed pt. They stated they would hold xarelto for several days but have no hard and fast rule or protocol they use. They did suggest speaking with the physician that manages the pts xarelto Dr. Ramirez in this case and coming to some consensus regarding how long to hold this medicine. 09/11/20 00:43 I have discussed this pt with Dr. Ramirez who feels holding the xarelto until Monday is reasonable with the understanding he is taking this to prevent embolic cva and perhaps the risk would increase of this very mildly. However he is bleeding and the INR is elevated a bit due to the xarelto. Out of an abundance of caution a recheck H/H will be checked and the pt will be discharged - presuming the recheck H/H is within a gram of the original - to follow up with his GI doctor (Dr. Fuentes) tomorrow at least by phone. I have turned the pt over to Dr. Mccray awaiting recheck H/H. (KWABENA FERNANDEZ) - Vital Signs Vital signs: Temp Pulse Resp BP Pulse Ox 98.4 F 56 L 20 101/67 96 09/11/20 03:25 09/10/20 20:35 09/11/20 03:01 09/11/20 03:01 09/11/20 03:01 - Laboratory Results Laboratory Results Interpreted: 09/10/20 09/10/20 09/10/20 22:20 22:20 22:20 Hgb RDW 14.5 H [place] % (Auto) PT 17.1 H BUN 23 H 09/11/20 02:19 Hgb 13.4 L RDW 14.1 H [place] % (Auto) 13.1 H PT BUN Discharge <MIL MCCRAY - Last Filed: 09/11/20 02:56> <KWABENA FERNANDEZ - Last Filed: 09/14/20 17:15> - Discharge Clinical Impression: Rectal bleeding, Coagulation disorder Condition: Stable Disposition: HOME, SELF-CARE Instructions: Rectal Bleeding, Unclear Cause ([facility]) Additional Instructions: You are bleeding due to the biopsy and the xarelto. DO NOT TAKE XARELTO TODAY (MONDAY), TOMORROW, OR MONDAY. START TAKING XARELTO AGAIN ON Monday09/14/20. Return here if you have any large bloody stools, stool/blood is more often, belly pain, belly swelling, fever, dizziness, chest pain, trouble breathing, any other worsening or concerning symptoms. Follow-up with your primary doctor within [address] Fuentes later this morning for follow up. Call Dr. Russo' office to schedule follow up with whomever is taking over his patients. Referrals: ANT FUENTES MD [ACTIVE STAFF] - 09/11/20 PARVEZ RUSSO MD [ACTIVE PROVISIONAL STAFF] - 09/11/20 JOSE MILNER DO [Primary Care Provider] - Follow up in 1 week I personally performed the services described in the documentation, reviewed and edited the documentation which was dictated to the scribe in my presence, and it accurately records my words and actions.
[2020-09-10 22:53] LABS: ABSOLUTE EOSINOPHILS # (AUTO) 0.1 10^3/uL (0.0-0.6); ABSOLUTE LYMPHOCYTES (AUTO) 2.4 10^3/uL (0.5-4.7); ABSOLUTE MONOCYTES (AUTO) 1.1 10^3/uL (0.1-1.4); ABSOLUTE NEUT (AUTO) 4.6 10^3/uL (1.7-8.2); BASOPHILS % (AUTO) 0.3 % (0-2); EOSINOPHILS % (AUTO) 1.6 % (0-6); HEMATOCRIT 42.9 % (37.9-51.0); HEMOGLOBIN 14.5 g/dL (13.5-17.0); LYMPHOCYTES % (AUTO) 29.6 % (13-45); MEAN CORPUSCULAR HEMOGLOBIN 28.2 pg (27.0-33.4); MEAN CORPUSCULAR HGB CONC 33.7 g/dL (32.0-36.0); MEAN CORPUSCULAR VOLUME 84 fl (80-97); MONOCYTES % (AUTO) 12.9 % (3-13); PLATELET COUNT 229 10^3/uL (150-450); RED BLOOD COUNT 5.13 10^6/uL (4.35-5.55); RED CELL DISTRIBUTION WIDTH 14.5 % (11.5-14.0); SEGMENTED NEUTROPHILS % (AUTO) 55.6 % (42-78); TOTAL CELLS COUNTED % (AUTO) 100 %; WHITE BLOOD COUNT 8.3 10^3/uL (4.0-10.5)
[2020-09-10 22:58] LABS: INTERNATIONAL RATION (INR) 1.38; PROTHROMBIN TIME 17.1 SEC (11.4-15.4)
[2020-09-10 23:06] LABS: ALBUMIN 3.8 g/dL (3.5-5.0); ALKALINE PHOSPHATASE 103 U/L (38-126); ANION GAP 6 (5-19); ASPARTATE AMINO TRANSFERASE 31 U/L (17-59); BILIRUBIN,DIRECT 0.2 mg/dL (0.0-0.4); BILIRUBIN,TOTAL 0.4 mg/dL (0.2-1.3); BLOOD UREA NITROGEN 23 mg/dL (7-20); CARBON DIOXIDE 27 mmol/L (22-30); CHLORIDE 107 mmol/L (98-107); GLUCOSE 106 mg/dL (75-110); POTASSIUM 4.3 mmol/L (3.6-5.0)
--- NOTE | 2020-09-10 23:29 | RADIOLOGY REPORT (SQ) ---
PA and lateral chest radiograph: 09/10/2020 10:28 PM JAVA DEVELOPMENT MANAGER History: 60-year old patient with hypertension. Comparison: Chest radiograph performed 12/04/2019 Findings: The cardiomediastinal silhouette is normal in size. No pneumothorax is seen. No acute airspace opacities are seen. No discrete pleural effusion is apparent. Impression: No acute airspace opacities are seen.
[2020-09-11 02:28] LABS: ABSOLUTE BASOPHILS # (AUTO) 0.1 10^3/uL (0.0-0.2); ABSOLUTE EOSINOPHILS # (AUTO) 0.2 10^3/uL (0.0-0.6); ABSOLUTE LYMPHOCYTES (AUTO) 2.4 10^3/uL (0.5-4.7); ABSOLUTE NEUT (AUTO) 3.6 10^3/uL (1.7-8.2); BASOPHILS % (AUTO) 0.9 % (0-2); EOSINOPHILS % (AUTO) 2.3 % (0-6); HEMOGLOBIN 13.4 g/dL (13.5-17.0); LYMPHOCYTES % (AUTO) 33.7 % (13-45); MEAN CORPUSCULAR HGB CONC 33.5 g/dL (32.0-36.0); MEAN CORPUSCULAR VOLUME 84 fl (80-97); MONOCYTES % (AUTO) 13.1 % (3-13); PLATELET COUNT 199 10^3/uL (150-450); RED BLOOD COUNT 4.78 10^6/uL (4.35-5.55); RED CELL DISTRIBUTION WIDTH 14.1 % (11.5-14.0); TOTAL CELLS COUNTED % (AUTO) 100 %; WHITE BLOOD COUNT 7.2 10^3/uL (4.0-10.5)
[2020-09-11 03:32] VITALS: BP 101/67
--- NOTE | 2020-09-11 07:22 | EKG REPORT ---
SEVERITY:- ABNORMAL ECG - ATRIAL FIBRILLATION, V-RATE [id number] CONSIDER OLD ANTERIOR DE : Confirmed by: Anthony Myers MD 11-Sep-2020 07:21:43
== END 2020-09-11 03:32 | disposition home or self-care (01) ==
LOC: ER 20:26
DX: K62.5 Hemorrhage of anus and rectum (principal); I48.91 Unspecified atrial fibrillation; I50.9 Heart failure, unspecified; E78.00 Pure hypercholesterolemia, unspecified; I11.0 Hypertensive heart disease with heart failure; Z79.01 Long term (current) use of anticoagulants; Z86.14 Personal history of Methicillin resistant Staphylococcus aureus infection; Z98.1 Arthrodesis status
CPT/HCPCS: 36415; 71045; 80053; 83605; 84484; 85025; 85610; 86850; 86900; 86901; 93005; 93010; 99285